=== PATIENT | male | born 1990 | race African-American/Black ===

== ENCOUNTER 2020-10-06 09:43 | Emergency (ER) | payer OTHER ==
[~2020-10-06] VITALS: Ht 180.3 cm; Wt 90.7 kg
[2020-10-06] MEDS ORDERED: ONDANSETRON HCL 4 MG ORAL DISINTEGRATING TAB PO NR (10:00)
[2020-10-06] MEDS ORDERED: ACETAMINOPHEN 325 MG TAB ONE (10:59)
[2020-10-06 12:30] VITALS: BP 128/86
== END 2020-10-06 11:45 | disposition home or self-care (01) ==
LOC: ER 09:49
DX: S06.0X0A Concussion without loss of consciousness, initial encounter (principal); R11.2 Nausea with vomiting, unspecified; W01.198A Fall on same level from slipping, tripping and stumbling with subsequent striking against other object, initial encounter; Y99.0 Civilian activity done for income or pay
CPT/HCPCS: 70450; 72125; 99283; Q0162